=== PATIENT | female | born 1930 | race Caucasian/White ===

== ENCOUNTER 2017-08-11 16:50 | Emergency (ER) | payer MEDICARE, OTHER ==
[~2017-08-11] VITALS: Ht 154.9 cm; Wt 45.8 kg
[~2017-08-11 16:50] MED LIST: ALLO300 PO; ASCO250CH PO; ASCO500 PO; ASPI325 PO; ASPI81EC PO; ATOR40TA PO; BUME2 PO; CALCIUM PO; CARV25 PO; CHOL10002 PO; CODLIVC PO; DOCU100 PO; ERGO400 PO; ETOD300 PO; FERR325 PO; FURO40 PO; HCTZ; HYDCHL12.5 PO; IRON PO; LACT10SY PO; LEVSOD100 PO; LEVSOD137 PO; LEVSOD50 PO; LISI20 PO; LISI5 PO; LISINOPRIL PO; LITHIUM ASPARTATE; LOW DOSE ASPIRI81 MG PO; METO2.5 PO; MYLAN; Micro-K10 MEQ; OMEGA RED PO; OXYC10TA19 PO; POTA10T PO; POTCHL10ER PO; Peri-Colace Ta1 EACH PO; RALO60 PO; SIMV40 PO; TOCO400 PO; UBID100 PO; VITAMIN A PO
[2017-08-11 17:26] LABS: BASOPHILS ABSOLUTE AUTO 0.04 K/mm3 (0.00-0.23); BASOPHILS PERCENT AUTO 1 % (0-2); EOSINOPHILS ABSOLUTE AUTO 0.16 K/mm3 (0.00-0.68); EOSINOPHILS PERCENT AUTO 3 % (0-6); Hematocrit 38.2 % (33.0-51.0); Hemoglobin 12.4 g/dL (11.5-16.0); IMMATURE GRAN ABSOLUTE AUTO 0.02 K/mm3 (0.00-0.10); IMMATURE GRAN PERCENT AUTO 0 % (0-1); LYMPHOCYTES ABSOLUTE AUTO 1.47 K/mm3 (0.84-5.20); LYMPHOCYTES PERCENT AUTO 25 % (21-46); MONOCYTES PERCENT AUTO 9 % (4-13); Mean Corpuscular HGB 29.7 pg (26.0-34.0); Mean Corpuscular HGB Conc 32.5 g/dL (31.5-36.5); Mean Corpuscular Volume 92 fL (80-100); Mean Platelet Volume 9.4 fL (9.1-12.4); NEUTROPHILS ABSOLUTE AUTO 3.68 K/mm3 (1.96-9.15); NEUTROPHILS PERCENT AUTO 63 % (41-73); Platelet Count 149 K/mm3 (150-400); RDW Coefficient Variation 14.4 % (11.7-14.2); RDW Standard Deviation 48.1 fL (35.1-46.3); Red Blood Cell Count 4.17 M/mm3 (3.80-5.20); White Blood Cell Count 5.87 K/mm3 (4.00-11.30)
[2017-08-11 17:46] LABS: Thyroxine (T4) 9.2 ug/dL (4.8-13.9)
[2017-08-11 17:53] LABS: Albumin, Blood 3.8 g/dL (3.4-5.0); Albumin/Globulin Ratio 1.2 (0.8-1.8); Bilirubin, Total 0.6 mg/dL (0.1-1.0); Calcium, Blood 9.2 mg/dL (8.5-10.1); Creatinine, Blood 0.94 mg/dL (0.40-1.00); Globulin, Blood 3.1 g/dL (2.2-4.0); Potassium, Blood 3.8 mmol/L (3.5-5.5); Thyroid Stimulating Hormone 0.428 uIU/mL (0.360-4.800); Total Protein, Blood 6.9 g/dL (6.4-8.2)
[2017-08-11 22:02] LABS: Source, Urine Catheter
[2017-08-11 22:04] LABS: Appearance, Urine Clear (Clear); Bilirubin, Urine Neg (Neg); Blood, Urine 1+ (Neg); Color, Urine Yellow (P-Yellow); Glucose Qualitative, Urine Neg (Neg); Ketones, Urine Neg (Neg); Leukocyte Esterase, Urine Neg (Neg); Nitrite, Urine Neg (Neg); Protein, Urine 2+ (Neg); Specific Gravity, Urine 1.005 (1.003-1.022); Urobilinogen, Urine NORM (Normal)
[2017-08-11 22:27] LABS: Bacteria Not Seen /hpf; Red Blood Cells, Urine 0-2 /hpf (0-2); Squamous Epithelial Cells Not Seen /hpf (Few); White Blood Cells, Urine 0-2 /hpf (0-5)
== END 2017-08-11 23:52 | disposition home or self-care (01) ==
LOC: ER 16:50
PROVIDERS: Emergency Medicine
DX: F03.90 Unspecified dementia, unspecified severity, without behavioral disturbance, psychotic disturbance, mood disturbance, and anxiety (principal); I25.10 Atherosclerotic heart disease of native coronary artery without angina pectoris; I12.9 Hypertensive chronic kidney disease with stage 1 through stage 4 chronic kidney disease, or unspecified chronic kidney disease; N18.9 Chronic kidney disease, unspecified; E03.9 Hypothyroidism, unspecified; E78.00 Pure hypercholesterolemia, unspecified; Z95.1 Presence of aortocoronary bypass graft; Z86.73 Personal history of transient ischemic attack (TIA), and cerebral infarction without residual deficits
CPT/HCPCS: 36415; 80053; 81001; 84436; 84443; 85025; 99284; P9612

== ENCOUNTER 2019-03-29 20:24 | Observation (INO) | payer MEDICARE, OTHER ==
[~2019-03-29] VITALS: Ht 157.5 cm; Wt 39.7 kg
[2019-03-29 20:52] LABS: BASOPHILS ABSOLUTE AUTO 0.04 K/mm3 (0.00-0.23); BASOPHILS PERCENT AUTO 1 % (0-2); EOSINOPHILS ABSOLUTE AUTO 0.06 K/mm3 (0.00-0.68); EOSINOPHILS PERCENT AUTO 1 % (0-6); Hematocrit 47.7 % (33.0-51.0); Hemoglobin 15.3 g/dL (11.5-16.0); IMMATURE GRAN ABSOLUTE AUTO 0.03 K/mm3 (0.00-0.10); IMMATURE GRAN PERCENT AUTO 0 % (0-1); LYMPHOCYTES ABSOLUTE AUTO 1.89 K/mm3 (0.84-5.20); LYMPHOCYTES PERCENT AUTO 24 % (21-46); MONOCYTES ABSOLUTE AUTO 0.44 K/mm3 (0.16-1.47); MONOCYTES PERCENT AUTO 6 % (4-13); Mean Corpuscular HGB 28.3 pg (26.0-34.0); Mean Corpuscular HGB Conc 32.1 g/dL (31.5-36.5); Mean Corpuscular Volume 88 fL (80-100); Mean Platelet Volume 10.2 fL (9.1-12.4); NEUTROPHILS ABSOLUTE AUTO 5.36 K/mm3 (1.96-9.15); NEUTROPHILS PERCENT AUTO 69 % (41-73); Platelet Count 239 K/mm3 (150-400); RDW Coefficient Variation 13.4 % (11.7-14.2); RDW Standard Deviation 43.1 fL (35.1-46.3); Red Blood Cell Count 5.41 M/mm3 (3.80-5.20); White Blood Cell Count 7.82 K/mm3 (4.00-11.30)
[2019-03-29 21:07] LABS: Albumin/Globulin Ratio 1.2 (0.8-1.8); Bilirubin, Total 0.7 mg/dL (0.1-1.0); Bun/Creatinine Ratio 30.3 (12.0-20.0); Calcium, Blood 9.5 mg/dL (8.5-10.1); Creatinine, Blood 1.75 mg/dL (0.40-1.00); Globulin, Blood 3.3 g/dL (2.2-4.0); Potassium, Blood 4.4 mmol/L (3.5-5.5); Total Protein, Blood 7.3 g/dL (6.4-8.2)
--- NOTE | 2019-03-30 02:30 | NUR ---
ATTEMPTED TO GET REPORT FROM SAMEERA SANDERS AND AWAITING CALL BACK.
--- NOTE | 2019-03-30 04:16 | NUR ---
T/F AND SUMMARY: REPORT RECIEVED FROM BEAN MARCELINO ([employer]) AND PT T/F TO ROOM 350 VIA [employer]. PT IS ORIENTED TO SELF ONLY BUT IS AWARE THAT DAUGHTERS WILL BE ARRIVING FROM [place] TODAY. SHE IS CONFUSED TO PLACE, DATE, TIME AND EVENT AND IS VERY FORGETFULL. FREQ REMINDERS AND ORIENTATION PROMPTS HAVE BEEN PROVIDED. SHE IS PLEASANT AND COOPERATIVE W/CARE AND WAS ORIENTED TO CALL LIGHT BUT PT HASN'T USED IT APPROPRIATELY THUS FAR. INCREASED ROUNDING IS ATTENDED TO AND BED ALARM ON FOR FALL RISK. A SNACK WAS PROVIDED AND IVF WERE COMMENCED. SHE APPEARS VERY FRAIL/EMACIATED BUT SKIN APPEARS IN GOOD CONDITION AND NO SBD NOTED. BLE'S ARE SWOLLEN AND FEET ARE DRY/CALLUSED. VSS/AFEBRILE AND NO ACUTE CHANGES. PT IS HYPERTENSIVE SINCE ER BUT PLAN TO HAVE DAY RN OBTAIN MED LIST FROM PHARMACY. PT IS TOO CONFUSED TO COMPLETE ADMISSION PAPERWORK AND WILL NEED HEALTH HX/MEDS COMPLETED W/FAMILY ASSIST. PT DENIES COMPLAINTS/CONCERNS. WCTM AND RERPORT TO DAY RN.
[2019-03-30 05:14] LABS: Hematocrit 42.5 % (33.0-51.0); Hemoglobin 14.1 g/dL (11.5-16.0); Mean Corpuscular HGB 29.3 pg (26.0-34.0); Mean Corpuscular HGB Conc 33.2 g/dL (31.5-36.5); Mean Corpuscular Volume 88 fL (80-100); Mean Platelet Volume 9.9 fL (9.1-12.4); Platelet Count 201 K/mm3 (150-400); RDW Coefficient Variation 13.2 % (11.7-14.2); Red Blood Cell Count 4.81 M/mm3 (3.80-5.20); White Blood Cell Count 6.54 K/mm3 (4.00-11.30)
[2019-03-30 05:39] LABS: Albumin, Blood 3.6 g/dL (3.4-5.0); Albumin/Globulin Ratio 1.2 (0.8-1.8); Bilirubin, Total 0.7 mg/dL (0.1-1.0); Bun/Creatinine Ratio 29.2 (12.0-20.0); Creatinine, Blood 1.54 mg/dL (0.40-1.00); Globulin, Blood 2.9 g/dL (2.2-4.0); Potassium, Blood 4.1 mmol/L (3.5-5.5); Total Protein, Blood 6.5 g/dL (6.4-8.2)
--- NOTE | 2019-03-30 14:13 | NUR ---
Spiritual Care intial note: Mrs. Riggins was sitting in hallway, outside her room. No family or friends present. She is pleasantly confused. She did not understand she is hospitalized, and spoke about her . She is not aware that he's passed. She told me she feels bored and wanted something to do. She told me she likes to keep a clean house. I brought her a pile of clean towels/wash-cloths and asked if she would help "us" out by folding them. This appeared to delight her. We had a pleasant, albeit disjointed conversation. Karla appears quite frail. I will continue to provide conversation and companionship in coming days.
--- NOTE | 2019-03-30 18:24 | NUR ---
SHIFT SUMMARY PT HAS BEEN PLEASANTLY CONFUSED. NO COMPLAINTS OF PAIN OR SHORTNESS OF BREATH THIS SHIFT. IVF INFUSING WITHOUT DIFFICULTY. PT HAS HAD A GOOD APPETITE. DECLINED TO TAKE A SHOWER THIS SHIFT. PLANS FOR PT TO DISCHARGE TOMORROW WITH DAUGHTER. DAUGHTER PLANS TO TAKE CARE OF PT. CALL LIGHT IN REACH AND BED ALARM ON FOR SAFETY. WILL CONTINUE TO MONITOR AND REPORT TO ONCOMING RN.
[2019-03-31] MEDS ORDERED: METO25 PO (11:56)
--- NOTE | 2019-03-31 13:57 | NUR ---
PATIENT DISCHARGED HOME WITH DAUGHTER. IV DISCONTINUED.
--- NOTE | 2019-03-31 16:12 | NUR ---
Spiritual Care note: Provided supportive visit to Karla and her dtr. Karla is pleasantly confused and talkative. She is being discharged shortly.
== END 2019-03-31 13:36 | disposition home or self-care (01) ==
LOC: ER 20:24 → ERHOLD 20:25 → MEDS 20:25
PROVIDERS: Physician Assistant; ADMIT Internal Medicine
DX: G30.9 Alzheimer's disease, unspecified (principal); F02.80 Dementia in other diseases classified elsewhere, unspecified severity, without behavioral disturbance, psychotic disturbance, mood disturbance, and anxiety; I12.9 Hypertensive chronic kidney disease with stage 1 through stage 4 chronic kidney disease, or unspecified chronic kidney disease; N18.4 Chronic kidney disease, stage 4 (severe); E03.9 Hypothyroidism, unspecified; E78.5 Hyperlipidemia, unspecified; E78.00 Pure hypercholesterolemia, unspecified; Z88.5 Allergy status to narcotic agent; Z86.73 Personal history of transient ischemic attack (TIA), and cerebral infarction without residual deficits
CPT/HCPCS: 36415; 80053; 82550; 85025; 85027; 96361; 96365; 96372; 97110; 97162; 97165; 97530; 97535; 99285; G0378; J1650; J7030

== ENCOUNTER → 2019-04-23 | Outpatient (CLI) | payer MEDICARE, OTHER ==
[~2019-04-23] MED LIST changes: +METO25 PO; +Norco 5-325 Ta1 EACH PO
== END | disposition home or self-care (01) ==
LOC: LAB SHORT 18:06 → LAB 18:06
DX: N39.0 Urinary tract infection, site not specified (principal)
CPT/HCPCS: 87086